=== PATIENT | male | born 1970 | race Caucasian/White ===

== ENCOUNTER 2016-04-22 05:26 | Inpatient (IN) | payer OTHER ==
[~2016-04-22] VITALS: Ht 177.8 cm; Wt 98.0 kg
[~2016-04-22 05:26] MED LIST: BENADRYL25 MG PO; CELECOXIB200 MG PO; KLONOPIN0.5 M1 PO; OXYCODONE HCL5 MG PO; OXYCONTIN10 MG PO; SENNA PLUS TAB1 EACH PO; TYLENOL REGULA325 MG PO; XARELTO10 MG PO
[2016-04-22 06:00] VITALS: BP 123/81
[2016-04-22 10:35] VITALS: BP 121/69
[2016-04-22 15:27] VITALS: BP 117/81
[2016-04-22 20:10] VITALS: BP 124/82
[2016-04-22 23:59] VITALS: BP 128/71
[2016-04-23 03:26] VITALS: BP 121/68
[2016-04-23 04:41] LABS: HEMATOCRIT 38.3 % (38.0-50.0); MCV 84.9 FL (86-99)
[2016-04-23 08:39] VITALS: BP 133/60
[2016-04-23 11:47] VITALS: BP 134/64
[2016-04-23 15:47] VITALS: BP 105/59
[2016-04-23 19:00] VITALS: BP 110/55
[2016-04-24] VITALS (8 sets, daily range): BP systolic 105–123; BP diastolic 57–69
[2016-04-24 07:07] LABS: HEMATOCRIT 35.3 % (38.0-50.0); MCV 87.4 FL (86-99)
[2016-04-25 00:36] VITALS: BP 111/61
[2016-04-25 03:49] VITALS: BP 117/66
[2016-04-25] MEDS ORDERED: BENADRYL25 MG PO (08:54)
[2016-04-25] MEDS ORDERED: TYLENOL REGULA325 MG PO (08:55)
[2016-04-25] MEDS ORDERED: OXYCODONE HCL5 MG PO (08:56)
[2016-04-25] MEDS ORDERED: XARELTO10 MG PO (08:56)
[2016-04-25] MEDS ORDERED: SENNA PLUS TAB1 EACH PO (08:56)
[2016-04-25] MEDS ORDERED: CELECOXIB200 MG PO (08:56)
== END 2016-04-25 10:23 | disposition home health service (06) | DRG 470 ==
LOC: 2SOUTH 05:26 → 3WEST 10:04 → 2SOUTH 15:58 → 3WEST 04-25 10:23
PROVIDERS: Orthopaedic Surgery
PROC: 0SR904A Replacement of Right Hip Joint with Ceramic on Polyethylene Synthetic Substitute, Uncemented, Open Approach (ICD-10-PCS; principal; 2016-04-22)
DX: M16.11 Unilateral primary osteoarthritis, right hip (principal); Z91.81 History of falling; R42 Dizziness and giddiness; Z96.642 Presence of left artificial hip joint
CPT/HCPCS: 73502; 85014; 85018; 97530 GP; C1713; J0131; J0690; J1100; J2250; J2270; J2405; J7050

== ENCOUNTER 2017-05-18 10:28 | Inpatient (IN) | payer OTHER ==
[~2017-05-18] VITALS: Ht 180.3 cm; Wt 112.8 kg
[~2017-05-18 10:28] MED LIST changes: -KLONOPIN0.5 M1 PO; +KLONOPIN1 MG PO
[2017-05-18 12:21] LABS: APPEARANCE CLEAR ((CLEAR)); BILIRUBIN NEGATIVE; BLOOD NEGATIVE; COLOR STRAW ((YELLOW)); GLUCOSE (STRIP) NEGATIVE; KETONES NEGATIVE; LEUKOCYTES NEGATIVE; NITRITE NEGATIVE; PROTEIN (STRIP) NEGATIVE; SPECIFIC GRAVITY 1.005 (1.000-1.030); UROBILINOGEN 0.2 MG/DL (0.2-1.0)
[2017-05-18] MEDS ORDERED: BRINTELLIX10 MG PO (12:26)
[2017-05-18] MEDS ORDERED: LIPITOR10 MG PO (12:27)
[2017-05-18 12:38] LABS: AMPHETAMINE NEGATIVE (500 ng/mL); BARBITURATES NEGATIVE (200 ng/mL); BENZODIAZEPINES NEGATIVE (150 ng/mL); BUPRENORPHINE NEGATIVE (10 ng/mL); COCAINE NEGATIVE (150 ng/mL); METHADONE NEGATIVE (200 ng/mL); METHAMPHETAMINE NEGATIVE (500 ng/mL); OPIATES (MORPHINE) NEGATIVE (100 ng/mL); OXYCODONE NEGATIVE (100 ng/mL); PHENCYCLIDINE NEGATIVE (25 ng/mL); PROPOXYPHENE NEGATIVE (300 ng/mL); THC CANNABINOIDS NEGATIVE (50 ng/mL); TRICYCLIC ANTIDEPRESSANTS NEGATIVE (300 ng/mL)
[2017-05-18 12:48] LABS: HEMATOCRIT 41.3 % (38.0-50.0); HEMOGLOBIN 14.4 G/DL (12.5-16.6); MCH 30.6 PG (29.0-34.0); MCHC 34.9 G/DL (30.0-36.0); MCV 87.9 FL (86-99); PLATELET COUNT 273 K/uL (156-360); RBC DIS.WIDTH-CV 13.4 % (11.8-14.6); RBC DIS.WIDTH-SD 43.5 % (39-53); WHITE BLOOD COUNT 12.5 K/uL (4.1-10.2)
[2017-05-18 13:16] LABS: ALBUMIN 4.2 G/DL (3.2-4.8); CHLORIDE 104 MEQ/L (99-109); POTASSIUM 3.7 MEQ/L (3.7-5.4); SODIUM 138 MEQ/L (136-147); TOTAL BILIRUBIN 0.5 MG/DL (0.0-1.0)
[2017-05-18 14:15] LABS: ALKALINE PHOSPHATASE 61 IU/L (3-129); ALT (GPT) 39 IU/L (3-49); AST (GOT) 35 IU/L (2-34); CREATININE 0.6 MG/DL (0.6-1.3); GFR ESTIMATE (CALCULATED) > 59 mL/min/ (58.99-99999); GLUCOSE 123 mg/dL (70-99); TOTAL PROTEIN 6.8 G/DL (6.4-8.3); UREA NITROGEN (BUN) 12 mg/dL (9-23)
[2017-05-18 14:32] LABS: SERUM ETHYL ALCOHOL < 10 mg/dL
[2017-05-18 14:42] VITALS: BP 127/66
[2017-05-18 14:44] VITALS: BP 127/66
[2017-05-19 09:41] VITALS: BP 148/70
[2017-05-19 15:54] VITALS: BP 122/67
[2017-05-20 07:34] VITALS: BP 111/59
[2017-05-20 15:11] VITALS: BP 118/63
[2017-05-21 08:09] VITALS: BP 109/55
[2017-05-21] MEDS ORDERED: CLONAZEPAM0.5 MG PO (09:50)
[2017-05-21] MEDS ORDERED: FLUOXETINE HCL20 MG PO (09:51)
[2017-05-21] MEDS ORDERED: DIVALPROEX SOD500 M1 PO (09:51)
== END 2017-05-21 12:20 | disposition home or self-care (01) | DRG 880 ==
LOC: EME 10:28 → EDOF 12:51 → 1WEST 12:51 → ENRESERV 14:34 → 1WEST 14:35
PROVIDERS: Emergency Medicine
DX: F41.1 Generalized anxiety disorder (principal); F32.9 Major depressive disorder, single episode, unspecified; R45.851 Suicidal ideations; F63.0 Pathological gambling; F41.0 Panic disorder [episodic paroxysmal anxiety]; Z87.891 Personal history of nicotine dependence
CPT/HCPCS: 80053; 81003; 85027; 90839; 99281; 99284; G0480